=== PATIENT | male | born 1985 | race African-American/Black ===

== ENCOUNTER 2021-06-18 07:33 | Emergency (ER) | payer OTHER ==
[2021-06-18 08:05] VITALS: BP 136/66; PULSE 85; TEMP 98.2; BMI 31.4
[2021-06-18 10:43] LABS: HIV INTERPRETATION NEGATIVE (NEGATIVE)
== END 2021-06-18 09:10 | disposition home or self-care (01) ==
LOC: JERFT 07:33 → JER 07:33 → JERFT 09:10
DX: R21 Rash and other nonspecific skin eruption (principal); J03.90 Acute tonsillitis, unspecified
CPT/HCPCS: 36415; 86593; 86695; 86696; 86780; 87389; 87651; 99283-25

== ENCOUNTER 2021-10-12 06:08 | Emergency (ER) | payer OTHER ==
[2021-10-12 06:13] VITALS: BP 118/76; PULSE 82; TEMP 98.1; BMI 32.9
[2021-10-12] MEDS ORDERED: ONDANSETRON 4 MG/2 ML VIAL IVPUSH ONE (06:51)
[2021-10-12] MEDS ORDERED: SODIUM CHLORIDE 0.9% 500 ML INFUS.BAG IV ONE (06:51)
[2021-10-12] MEDS ORDERED: ONDANSETRON 4 MG/2 ML VIAL ONE (06:52)
[2021-10-12] MEDS ORDERED: ACETAMINOPHEN 1000 MG/100 ML BAG IVPB ONE (07:28)
[2021-10-12] MEDS ORDERED: FAMOTIDINE 20 MG/50 ML IVPB 20 MG/50 ML MG IVPB ONE ×2 (07:28→07:33)
[2021-10-12] MEDS ORDERED: LIDOCAINE 5% TOPICAL PATCH TP ONE (07:31)
[2021-10-12] MEDS ORDERED: LIDOCAINE 5% TOPICAL PATCH ONE (07:33)
[2021-10-12] MEDS ORDERED: ACETAMINOPHEN INJECTION 100 ML IVPB ONE (07:33)
[2021-10-12] MEDS ORDERED: HALOPERIDOL LACTATE 5 MG/ML IV ONE (08:06)
[2021-10-12 08:18] LABS: BASO % 0.1 % (0-2.0); EOS % 0.2 % (0-4.5); HEMATOCRIT 47.4 % (35.4-49); HEMOGLOBIN 15.5 GM/dL (11.7-16.9); LYMPH % 5.9 % (8-40); MCH 30.3 pg (25.7-33.7); MCHC 32.7 g/dl (32.0-35.9); MEAN CELL VOLUME 92.6 fl (80-96); MONO % 6.7 % (3.8-10.2); NEUT % 87.1 % (42.8-82.8); PLATELET COUNT 314 10^3/uL (134-434); RBC 5.11 M/mm3 (4.00-5.60); RDW 13.2 % (11.9-15.9); WHITE BLOOD COUNT 15.3 K/mm3 (4.0-10.0)
[2021-10-12 08:39] LABS: BLOOD UREA NITROGEN 16.9 mg/dL (7-18); CALCIUM 9.3 mg/dL (8.5-10.1)
[2021-10-12 08:42] LABS: CREATININE 1.2 mg/dL (0.55-1.3)
[2021-10-12 08:44] LABS: BILIRUBIN,TOTAL 0.8 mg/dL (0.2-1)
[2021-10-12] MEDS ORDERED: LIDOCAINE PATCH REMOVAL MC SCH (22:00)
== END 2021-10-12 09:34 | disposition home or self-care (01) ==
LOC: JER 06:08
PROC: 3E033GC Introduction of Other Therapeutic Substance into Peripheral Vein, Percutaneous Approach (ICD-10-PCS; principal; 2021-10-12)
DX: R11.2 Nausea with vomiting, unspecified (principal)
CPT/HCPCS: 36415; 80053; 83690; 85025; 93005; 93010; 99284-25